=== PATIENT | male | born 1955 ===

== ENCOUNTER 2018-08-10 10:03 | Emergency (ER) | payer MEDICAID ==
[2018-08-10 10:04] VITALS: BMI 33.9
--- NOTE | 2018-08-10 10:38 | C.PDOC ---
History Of Present Illness 63 year old male presents to ED for evaluation of left and right eye redness with itching and clear discharge for the last 6 days. Patient states the left eye pain is more intense. Also notes he has taken over the counter eye drops with no improvement. Denies foreign body sensation, vision change, fever, nausea, vomiting, and other associated symptoms. L>R EYE REDNESS, ITCH CLEAR DC X 6 DAYS. NO FB SENSATION, VISION CHANGE. NO IMPROVE W OTC EYE DROPS EXAM NAD HEENT +CONJUNCTIVITIS L>R W CLEAR DC. PERIORB WNL. PERRLA, NO VISION DEF REMAIDNER NEG Time Seen by Provider: 08/10/18 10:33 History Per: Patient History/Exam Limitations: no limitations Onset/Duration Of Symptoms: Days Current Symptoms Are (Timing): Still Present Past Medical History Reviewed: Historical Data, Nursing Documentation, Vital Signs Vital Signs: Last Vital Signs Temp 98.5 F 08/10/18 10:38 Pulse 75 08/10/18 10:38 Resp 18 08/10/18 11:15 BP 133/81 08/10/18 10:38 Pulse Ox 97 08/10/18 12:20 - Medical History PMH: Anxiety, Back Problems, Bipolar Disorder, Depression, HIV, Hypercholesterolemia Denies: Chronic Kidney Disease Family History: States: Unknown Family Hx - Social History Hx Alcohol Use: No Hx Substance Use: No - Immunization History Hx Influenza Vaccination: No Hx Pneumococcal Vaccination: No Review Of Systems Except As Marked, All Systems Reviewed And Found Negative. Constitutional: Negative for: Fever, Chills Eyes: Positive for: Pain (To the right and left eye with itching and discharge. Intensified on the left eye. ), Redness (To the right and left eye. Intensified on the left eye. ), Other (no foreign body ). Negative for: Vision Change Gastrointestinal: Negative for: Nausea, Vomiting Physical Exam - Physical Exam Appears: Non-toxic, No Acute Distress Skin: Normal Color, Warm, Dry Head: Atraumatic, Normacephalic Eye(s): bilateral: PERRL, Other (+conjuctivitis with clear discharge. Intensifed on the left eye. No vision change or vision deficits. Periorbial within normal limits.) Ear(s): Bilateral: Normal Nose: Normal Chest: Symmetrical Cardiovascular: Rhythm Regular Respiratory: Other (NARD) Neurological/Psych: Oriented x3, Normal Speech Gait: Steady ED Course And Treatment O2 Sat by Pulse Oximetry: 97 (RA) Pulse Ox Interpretation: Normal Medical Decision Making Medical Decision Making: Progress/Update: Patient stable for discharge home. Prescribed Ciloxan and advised to follow up with PMD as needed. Disposition Counseled Patient/Family Regarding: Diagnosis, Need For Followup, Rx Given - Disposition Referrals: Agusto,Dyllan [Staff Provider] - Disposition: HOME/ ROUTINE Disposition Time: 10:37 Condition: GOOD Prescriptions: Ciprofloxacin 0.3% [Ciloxan 0.3% Ophth SOLN] 2 drop OD Q2 #1 bottle Instructions: Conjunctivitis ([place]) (DC) Forms: [facility] (Montenegrin) - Clinical Impression Clinical Impression: Conjunctivitis - Scribe Statement The provider has reviewed the documentation as recorded by the Scribe (Rajani Gill) Provider Attestation: All medical record entries made by the Scribe were at my direction and personally dictated by me. I have reviewed the chart and agree that the record accurately reflects my personal performance of the history, physical exam, medical decision making, and the department course for this patient. I have also personally directed, reviewed, and agree with the discharge instructions and disposition.
[2018-08-10 10:42] VITALS: BP 133/81; PULSE 75; TEMP 98.5; O2SAT 97
[2018-08-10 11:19] VITALS: RESP 18
== END 2018-08-10 11:16 | disposition home or self-care (01) ==
LOC: C.ER 10:03
DX: H10.9 Unspecified conjunctivitis (principal)